=== PATIENT | male | born 1995 | race Caucasian/White ===

== ENCOUNTER 2017-03-02 06:01 | Emergency (ER) | payer OTHER ==
[~2017-03-02] VITALS: Ht 180.3 cm; Wt 88.3 kg
--- NOTE | 2017-03-02 06:30 | PHYS DOC ---
Past History Past Medical History: No Pertinent History, Seizure Past Surgical History: No Surgical History, Other Alcohol Use: Rarely Drug Use: None Adult General Chief Complaint Chief Complaint: MULTIPLE COMPLAINTS HPI HPI 21-year-old gentleman otherwise healthy presents the emergency department today after feeling bad for the last 7 days. He reports recently being on hiking trips with a friend who is currently joining the [employer]. They would hike for approximately 8 hours. He reports during these headaches he has had exposure to ticks and has pulled a few ticks off of him but does not remember what kind. He also 5 or 6 days ago reports that his pet rat bit him. He describes myalgias fever and malaise. Onset 5 days. Location generalized. Duration intermittent. No alleviating or exacerbating factors. He also reports injuring his left ankle while hiking. He has mild left ankle pain from this. Review of systems is negative for chest pain shortness of breath abdominal pain nausea vomiting. He denies neck stiffness or confusion. He denies numbness tingling or weakness All other review of systems is negative unless otherwise noted in history of present illness. Review of Systems Review of Systems SEE ABOVE. Allergies Allergies Allergies Coded Allergies Type Severity Reaction Last Updated Verified No Known Allergies Allergy Unknown 06/10/14 No Physical Exam Physical Exam Constitutional: Well developed, well nourished, no acute distress, non-toxic appearance. HENT: Normocephalic, atraumatic, bilateral external ears normal, oropharynx moist, no oral exudates, nose normal. [] Eyes: PERRLA, EOMI, conjunctiva normal, no discharge. Neck: Normal range of motion, no tenderness, supple, no stridor. [Negative Kernig sign, negative Brudzinski's sign. Cardiovascular:Heart rate regular rhythm, no murmur [] Lungs & Thorax: Bilateral breath sounds clear to auscultation [] Abdomen: Bowel sounds normal, soft, no tenderness, no masses, no pulsatile masses. Skin: Warm, dry, no erythema, no rash. Back: No tenderness, no CVA tenderness. [] Extremities: No tenderness, no cyanosis, no clubbing, ROM intact, no edema. [] Patient has small lesion on his third right finger that he reports as the rat bite. It is not erythematous warm swollen. It is not draining fluid. It is healing well. Neurologic: Alert and oriented X 3, normal motor function, normal sensory function, no focal deficits noted. Psychologic: Affect normal, judgement normal, mood normal. [] EKG EKG [] Radiology/Procedures Radiology/Procedures [] Course & Med Decision Making Course & Med Decision Making Pertinent Labs and Imaging studies reviewed. (See chart for details) [] 21-year-old male presenting with generalized myalgias fatigue and fevers after exposure to tick bite and rat bite. Differential diagnosis included tick borne febrile illnesses such as ehrlichiosis, [place] spotted fever, Lyme's disease. The patient denied any of the classic rashes that are associated with some of these conditions. Other differential considered rat bite fever. We will initiate doxycycline therapy which should cover these illnesses. X-ray obtained. The patient was then discharged home in stable condition to follow up with their primary care physician over the next 2-3 days. They were to return if their symptoms worsened or if they were concerned for any reason. Face-to- face discharge instructions and return precautions were given. Patient's questions were answered to their satisfaction. Patient is comfortable plan. Dragon Disclaimer Dragon Disclaimer This chart was dictated in whole or in part using Voice Recognition software in a busy, high-work load, and often noisy Emergency Department environment. It may contain unintended and wholly unrecognized errors or omissions. Departure Departure: Impression: Primary Impression: Fever Additional Impressions: Malaise Rat bite Tick bite Disposition: 01 HOME, SELF-CARE Condition: STABLE Referrals: NON,STAFF (PCP) SHELL ALARCON MD Patient Instructions: Fatigue, Fever, Rabies Vaccine suspension for injection Additional Instructions: Thank you for allowing us to participate in your care today. Followup with your primary care physician in 3 days if your symptoms do not improve. If you do not have a primary care provider you can ask for a list of our primary care providers. Return to the emergency department you have any new or concerning findings. This should be evaluated by the primary care physician and any necessary consulting services for continued management within a few days after discharge. Return to emergency room if you have any new or concerning symptoms including but not limited to fever, chills, nausea, vomiting, intractable pain, any new rashes, chest pain, shortness of air, uncontrolled bleeding, difficulty breathing, and/or vision loss. Scripts Doxycycline Monohydrate (DOXYCYCLINE MONOHYDRATE) 100 Mg Capsule 1 CAP PO BID, #28 CAP Prov: FRANCINE BROWNING MD 03/02/17 Problem Qualifiers FRANCINE BROWNING MD March 02, 2017 06:30
[2017-03-02] MEDS ORDERED: DOXY100C14 PO (06:36)
[2017-03-02] MEDS ORDERED: RABIES VIRUS VACC PF 2.5 UNIT / 1 ML VIAL. VAX IM ONE (07:00)
[2017-03-02] MEDS ORDERED: RABIES IMMUNE GLOBULIN PF 300 UNIT/2 ML VIAL. VAX IM ONE (07:00)
[2017-03-02] MEDS ORDERED: IBUPROFEN 400 MG TABLET. PO ONE (07:00)
[2017-03-02] MEDS ORDERED: RABIES IMMUNE GLOBULIN PF 150 UNIT/ML 10ML VIAL. VAX IM ONE (07:00)
[2017-03-02 07:55] VITALS: BP 116/60
--- NOTE | 2017-03-02 08:25 | RAD ---
Left ankle radiographs History: Left ankle pain after injury. Comparison: None. Findings: AP, lateral, and oblique views of the left ankle. No acute fracture or dislocation is identified. No focal soft tissue swelling is seen. Impression: No acute osseous traumatic injury identified.
== END 2017-03-02 07:59 | disposition home or self-care (01) ==
LOC: ER 06:01
DX: S61.252A Open bite of right middle finger without damage to nail, initial encounter (principal); T14.8 Other injury of unspecified body region; R50.9 Fever, unspecified; R53.81 Other malaise; W53.11XA Bitten by rat, initial encounter; W57.XXXA Bitten or stung by nonvenomous insect and other nonvenomous arthropods, initial encounter; Y93.89 Activity, other specified; Y99.8 Other external cause status; Y92.89 Other specified places as the place of occurrence of the external cause
CPT/HCPCS: 73610; 90376; 90471; 90675; 96372; 99283-25; 99284-25

== ENCOUNTER 2019-09-25 08:46 | Emergency (ER) | payer SELFPAY ==
[~2019-09-25] VITALS: Ht 179.1 cm; Wt 94.2 kg
[~2019-09-25 08:46] MED LIST: DOXY100C14 PO
--- NOTE | 2019-09-25 09:13 | PHYS DOC ---
Adult General Chief Complaint Chief Complaint Fever HPI HPI 24 years old male presented to the emergency department with fever sore throat and cough body aches or 3 days symptoms are worse today , shortness breath no vomiting no diarrhea no urgency no frequency no hematuria Review of Systems Review of Systems Constitutional: + fever or chills [] Eyes: Denies change in visual acuity, redness, or eye pain [] HENT: Denies nasal congestion or sore throat [] Respiratory: Denies shortness of breath [] Cardiovascular: No additional information not addressed in HPI [] GI: Denies abdominal pain, nausea, vomiting, bloody stools or diarrhea [] : Denies dysuria or hematuria [] Musculoskeletal: Denies back pain or joint pain [] Integument: Denies rash or skin lesions [] Neurologic: Denies headache, focal weakness or sensory changes [] Endocrine: Denies polyuria or polydipsia [] All other systems were reviewed and found to be within normal limits, except as documented in this note. Current Medications Current Medications Current Medications Medications (Trade) Dose Ordered Sig/Lesly Start Time Stop Time Status Last Admin Dose Admin Ketorolac Tromethamine (Toradol Im) 60 mg 1X ONCE 09/25/19 09:15 09/25/19 09:16 DC Prednisone (Prednisone) 60 mg 1X ONCE 09/25/19 09:15 09/25/19 09:16 DC Allergies Allergies Allergies Coded Allergies Type Severity Reaction Last Updated Verified No Known Allergies Allergy Unknown 06/10/14 No Physical Exam Physical Exam Constitutional: Well developed, well nourished, no acute distress, non-toxic appearance. [] HENT: Normocephalic, atraumatic, bilateral external ears normal, oropharynx moist, pharyngeal erythema, nose normal. [] Eyes: PERRLA, EOMI, conjunctiva normal, no discharge. [] Neck: Normal range of motion, no tenderness, supple, no stridor. [] Cardiovascular:Heart rate regular rhythm, no murmur [] Lungs & Thorax: Bilateral breath sounds clear to auscultation [] Abdomen: Bowel sounds normal, soft, no tenderness, no masses, no pulsatile masses. [] Skin: Warm, dry, no erythema, no rash. [] Back: No tenderness, no CVA tenderness. [] Extremities: No tenderness, no cyanosis, no clubbing, ROM intact, no edema. [] Neurologic: Alert and oriented X 3, normal motor function, normal sensory function, no focal deficits noted. [] Psychologic: Affect normal, judgement normal, mood normal. [] EKG EKG [] Radiology/Procedures Radiology/Procedures [] Course & Med Decision Making Course & Med Decision Making Pertinent Labs and Imaging studies reviewed. (See chart for details) [] Final Impression Final Impression [] Problems: (1) Strep pharyngitis Dragon Disclaimer Dragon Disclaimer This electronic medical record was generated, in whole or in part, using a voice recognition dictation system. GEOVANI PARRISH MD Sep 25, 2019 09:13
[2019-09-25] MEDS ORDERED: KETOROLAC 60 MG/2 ML VIAL. IM ONE (09:15)
[2019-09-25] MEDS ORDERED: predniSONE 20 MG TABLET PO ONE (09:15)
[2019-09-25] MEDS ORDERED: AMOX500C PO (09:40)
[2019-09-25 09:53] LABS: INFLUENZA A PATIENT NEGATIVE (NEGATIVE); INFLUENZA B PATIENT NEGATIVE (NEGATIVE)
[2019-09-25 10:00] VITALS: BP 114/75
== END 2019-09-25 10:00 | disposition home or self-care (01) ==
LOC: ER 08:46
DX: J02.0 Streptococcal pharyngitis (principal); B95.0 Streptococcus, group A, as the cause of diseases classified elsewhere
CPT/HCPCS: 87804; 87880; 96372; 99284; J1885; J7512

== ENCOUNTER 2020-04-06 01:23 | Emergency (ER) | payer BC ==
[~2020-04-06] VITALS: Ht 180.3 cm; Wt 92.9 kg
[~2020-04-06 01:23] MED LIST changes: +AMOX500C PO
--- NOTE | 2020-04-06 01:34 | PHYS DOC ---
Past History Past Medical History: Seizure, Other Additional Past Medical Histor: craniosynostosis Past Surgical History: Other Additional Past Surgical Histo: multiple skull surgeries as child Alcohol Use: Occasionally Drug Use: None General Adult EDM: Chief Complaint: LACERATION/AVULSION HPI: HPI: "..I was huang running across grass.. and I fell scrape up my Lt. leg ... and ripped off the nail on this Rt. little .. finger..." " I was going to take care of it at home.. but my said .. I needed to come... in.." Patient is a 24 year old male who presents with above hx of fall and laceration avulsion of right distal fifth phalange nail and tip of finger. Patient does have range of motion of right fifth finger. Has ground in mud and dirt to fifth finger avulsion laceration and to right franklin abrasion lacerations. Patient laceration abrasions on left anterior franklin and small abrasions to right anterior franklin are superficial and multiple.. Patient is right-hand dominant. Patient does not remember his last tetanus vaccination. Patient has been drinking some alcohol tonight. No history of recent travel outside the [place] area. No history of immunosuppression. No recent exposure to ill individuals or animals. Patient normally follows with Dr. Alarcon. Review of Systems: Review of Systems: Constitutional: Denies fever or chills Eyes: Denies change in visual acuity HENT: Denies nasal congestion or sore throat Respiratory: Denies cough or shortness of breath Cardiovascular: Denies chest pain or edema GI: Denies abdominal pain, nausea, vomiting, bloody stools or diarrhea : Denies dysuria Musculoskeletal: Denies back pain or joint pain Integument: Denies rash Neurologic: Denies headache, focal weakness or sensory changes Endocrine: Denies polyuria or polydipsia Lymphatic: Denies swollen glands Psychiatric: Denies depression or anxiety Heart Score: Risk Factors: Risk Factors: DM, Current or recent (<one month) smoker, HTN, HLP, family history of CAD, obesity. Risk Scores: Score 0 - 3: 2.5% MACE over next 6 weeks - Discharge Home Score 4 - 6: 20.3% MACE over next 6 weeks - Admit for Clinical Observation Score 7 - 10: 72.7% MACE over next 6 weeks - Early Invasive Strategies Family History: Family History: Noncontributory Current Medications: Current Meds: See nursing for home meds Allergies: Allergies: Allergies Coded Allergies Type Severity Reaction Last Updated Verified No Known Allergies Allergy Unknown 09/25/19 No Physical Exam: PE: Constitutional: Well developed, well nourished, moderate acute distress, intoxicated in appearance. [] HENT: Normocephalic, atraumatic, bilateral external ears normal, oropharynx moist, no oral exudates, nose normal. [] Eyes: PERRLA, EOMI, conjunctiva normal, no discharge. [] Neck: Normal range of motion, no tenderness, supple, no stridor. [] Cardiovascular: Tachycardia heart rate regular rhythm, no murmur [] Lungs & Thorax: Bilateral breath sounds equal at apex on auscultation [] Abdomen: Bowel sounds normal, soft, no tenderness, no masses, no pulsatile masses. [] Skin: Warm, dry, no erythema, no rash. [] Multiple small abrasion lacerations to both shins primarily on left franklin. The avulsion laceration of right distal fifth fingertip and fingernail. Back: No tenderness, no CVA tenderness. [] Extremities: No tenderness, no cyanosis, no clubbing, ROM intact, no edema. Contusion to bilateral shins. Neurologic: Alert and oriented X 3, normal motor function, normal sensory function, no focal deficits noted. [] Psychologic: Affect normal, judgement normal, mood normal. [] EKG: EKG: [] Radiology/Procedures: Radiology/Procedures: [][address] [address] IMAGING REPORT Signed PATIENT: NANCY LOWERY ACCOUNT: [id number] : 1995 LOCATION: ER AGE: 24 SEX: M EXAM STATUS: DEP ER ORD. PHYSICIAN: NICHOLE GALLARDO MD REASON: fall PROCEDURE: HAND RIGHT 3V Right hand 3 views. HISTORY: Fall 3 views were taken of the right hand. There is soft tissue swelling of the fifth finger. There is not evidence of an acute fracture or osseous abnormality. IMPRESSION: 1. Soft tissue swelling with soft tissue injury right fifth finger. 2. No acute fracture. Electronically signed by: Nando Cai MD (04/06/2020 3:40 AM) [id number] DICTATED AND SIGNED BY: NANDO CAI MD DATE: 04/06/20339 CC: SHELL ALARCON MD; NICHOLE GALLARDO MD ~ Course & Med Decision Making: Course & Med Decision Making Pertinent Labs and Imaging studies reviewed. (See chart for details) Procedure note-wound care: Patient received a digital block with 2% lidocaine as well as local injection of distal right fifth finger tip. The avulsion laceration of right fifth finger required sharp scissor removal of avascular skin and ground in dirt. Wound scrubbed with normal saline and Betadine. Reirrigated wound with normal saline. Bactracin applied with band aid and bulk dressing.. 5th Finger joaquin tapped to 4th finger. Patient to leave dressing in place for the next 3 days. Patient must keep wound clean and dry. If dressing becomes wet must change dressing immediately. Once initial dressing removed will need to apply Polysporin 4 times a day to wound. Patient to monitor closely for increase infection of wound. Patient to take Keflex 500 mg 3 times a day. Patient did receive a IM injection of Rocephin 1 g tonight. Warned patient wound high risk for infection due to the ground in dirt. Patient advised nail may not return to a normal position and may be in excess of a year before going out if the cuticle bed still intact. Nursing scrubbed abrasions lacerations on legs with a scrub brush. These injuries were not amenable to suture. Patient advised to expect continued bleeding and oozing tonight. Patient to keep right hand elevated. Patient take Tylenol and ibuprofen for pain. Patient return if any concerns. Impression: 1. Rt.5 th finger distal a avulsion laceration of fingertip and nail. 2. Multiple superficial abrasions and lacerations to right and left franklin [] Dragon Disclaimer: Dragon Disclaimer: This electronic medical record was generated, in whole or in part, using a voice recognition dictation system. Departure Departure: Disposition: 01 HOME/RESIDENCE PRIOR TO ADM Condition: STABLE Referrals: SHELL ALARCON MD (PCP) Scripts Cephalexin (KEFLEX) 500 Mg Capsule 500 MG PO TID for dirty wound for 7 Days, BOT Prov: NICHOLE GALLARDO MD 04/06/20 Justification of Admission: Justification of Admission: Justification of Admission Dx: N/A Dr[place]ra Disclaimer This chart was dictated in whole or in part using Voice Recognition software in a busy, high-work load, and often noisy Emergency Department environment. It may contain unintended and wholly unrecognized errors or omissions. Dragon Disclaimer This chart was dictated in whole or in part using Voice Recognition software in a busy, high-work load, and often noisy Emergency Department environment. It may contain unintended and wholly unrecognized errors or omissions. NICHOLE GALLARDO MD Apr 06, 2020 01:34
[2020-04-06 01:41] VITALS: BP 118/88
[2020-04-06] MEDS: ACETAMINOPHEN 500 MG TABLET PO ONE ×2 (01:57→02:00)
[2020-04-06] MEDS ORDERED: DIPH,PERTUSS(ACELL),TET VAC/PF 0.5 ML SYRINGE. VAX IM ONE (02:00)
[2020-04-06] MEDS ORDERED: LIDOCAINE 2% 20 ML VIAL. IJ ONE (02:00)
[2020-04-06] MEDS ORDERED: BACITRACIN ZINC TOPICAL OINT PACKET. TP ONE (02:00)
[2020-04-06] MEDS ORDERED: CEPH-264 PO (02:13)
[2020-04-06] MEDS ORDERED: cefTRIAXone IM 1 GM VIAL IM ONE (02:30)
--- NOTE | 2020-04-06 03:43 | RAD ---
Right hand 3 views. HISTORY: Fall 3 views were taken of the right hand. There is soft tissue swelling of the fifth finger. There is not evidence of an acute fracture or osseous abnormality. IMPRESSION: 1. Soft tissue swelling with soft tissue injury right fifth finger. 2. No acute fracture. Electronically signed by: Nando Cai MD (04/06/2020 3:40 AM) [id number]
== END 2020-04-06 02:55 | disposition home or self-care (01) ==
LOC: ER 01:23
DX: S61.316A Laceration without foreign body of right little finger with damage to nail, initial encounter (principal); W18.39XA Other fall on same level, initial encounter; Y93.02 Activity, running; Y92.89 Other specified places as the place of occurrence of the external cause; Y99.8 Other external cause status
CPT/HCPCS: 64450; 73130; 90471; 90715; 96372; 99284; J0696; J2001

== ENCOUNTER 2021-07-19 13:25 | Emergency (ER) | payer SELFPAY ==
[~2021-07-19] VITALS: Ht 180.3 cm; Wt 92.9 kg
[~2021-07-19 13:25] MED LIST changes: +CEPH-264 PO; +DOXY-181 PO; -DOXY100C14 PO
[2021-07-19 13:33] VITALS: BP 137/82
--- NOTE | 2021-07-19 13:51 | PHYS DOC ---
Past History Past Medical History: No Pertinent History, Seizure, Other Additional Past Medical Histor: craniosynostosis (ROYCE BRUCE APRN) Past Surgical History: Other Additional Past Surgical Histo: multiple skull surgeries as child (ROYCE BRUCE APRN) Alcohol Use: Occasionally Drug Use: None (ROYCE BRUCE APRN) General Adult EDM: Chief Complaint: EARACHE/EAR PAIN HPI: HPI: Patient is a 26-year-old male who presents to the emergency department for left ear pain. Patient reports that he tried to remove his earwax with a curette and started having pain after. He rates his pain 6 out of 10. He took ibuprofen prior to arrival. Patient denies any fevers, cough, sore throat, nasal congestion or drainage. (ROYCE BRUCE APRN) Review of Systems: Review of Systems: 14 body systems of the review of systems have been reviewed. See HPI for pertinent positive and negative responses, otherwise all other systems are negative, nonpertinent or noncontributory (ROYCE BRUCE APRN) Allergies: Allergies: Allergies Coded Allergies Type Severity Reaction Last Updated Verified No Known Allergies Allergy Unknown 09/25/19 No (ROYCE BRUCE APRN) Physical Exam: PE: Constitutional: Well developed, well nourished, no acute distress, non-toxic appearance. [] HENT: Normocephalic, atraumatic, left ear canal noted with excessive cerumen without redness, oropharynx moist, no oral exudates, nose normal. [] Eyes: PERRL, EOMI, conjunctiva normal, no discharge. [] Neck: Normal range of motion, no stridor Cardiovascular: Normal peripheral perfusion Lungs & Thorax: Normal work of breathing, no tachypnea Abdomen: Soft and flat Skin: Warm, dry, no erythema, no rash. [] Back: Normal range of motion Extremities: No tenderness, no cyanosis, no clubbing, ROM intact, no edema. [] Neurologic: Alert and oriented X 3, normal motor function, normal sensory function, no focal deficits noted. [] Psychologic: Affect normal, judgement normal, mood normal. [] (ROYCE BRUCE APRN) Current Patient Data: Vital Signs: Vital Signs Date Time Temp Pulse Resp B/P (MAP) Pulse Ox O2 Delivery O2 Flow Rate FiO2 07/19/21 13:33 98.3 67 16 137/82 (100) 98 Room Air (ROYCE BRUCE APRN) EKG: EKG: [] (ROYCE BRUCE APRN) Radiology/Procedures: Radiology/Procedures: [] (ROYCE BRUCE APRN) Heart Score: C/O Chest Pain: N/A Risk Factors: Risk Factors: DM, Current or recent (<one month) smoker, HTN, HLP, family history of CAD, obesity. Risk Scores: Score 0 - 3: 2.5% MACE over next 6 weeks - Discharge Home Score 4 - 6: 20.3% MACE over next 6 weeks - Admit for Clinical Observation Score 7 - 10: 72.7% MACE over next 6 weeks - Early Invasive Strategies (ROYCE BRUCE APRN) Course & Med Decision Making: Course & Med Decision Making Pertinent Labs and Imaging studies reviewed. (See chart for details) [] Patient presents with left ear pain after removing earwax with a curette. Patient was noted to have excessive cerumen in his left ear canal. This was washed out in the ER and removed, tympanic membranes visualized and is without redness. Patient advised to use Debrox at home and continue to take Tylenol and ibuprofen for pain. I discussed with patient all findings and diagnostic testing as well as the need to follow-up with PCP for further evaluation and treatment or return to the ER if any new or worsening symptoms. Strict return precautions were also discussed at length. Patient voiced understanding and agreement with the plan. Patient is hemodynamically stable at the time of disposition.. (ROYCE BRUCE APRN) Course & Med Decision Making I was the Attending physician on the above date of service of this patient. This patient was evaluated, examined, treated, and dispositioned from the emergency department by the mid-level practitioner. Although I was working at the time , no assistance was requested. Electronically signed, Melina Ding DO (MELINA DING DO) Bill Disclaimer: Bill Disclaimer: This electronic medical record was generated, in whole or in part, using a voice recognition dictation system. (ROYCE BRUCE APRN) Departure Departure: Impression: Primary Impression: Cerumen impaction Qualified Codes: H61.22 - Impacted cerumen, left ear Disposition: HOME / SELF CARE / HOMELESS Condition: GOOD Referrals: SHELL ALARCON MD (PCP) Patient Instructions: Cerumen Impaction Additional Instructions: You were seen in the emergency department for left ear pain. You were noted to have excessive cerumen, this was removed with an ear wash. There was no redness to indicate ear infection. You can use Debrox to soften your earwax to let it drain out normally, avoid putting any objects into your ear canal. You can take Tylenol or ibuprofen for pain. Follow-up with your primary care provider as needed. Return to the emergency department if you have any new or worsening concerns. EMERGENCY DEPARTMENT GENERAL DISCHARGE INSTRUCTIONS Thank you for coming to [facility] (ED) today and trusting us with you care. We trust that you had a positivie experience in our Emergency Department. If you wish to speak to the department management, you may call the director at [phone]. YOUR FOLLOW UP INSTRUCTIONS ARE FOLLOWS: 1. Do you have a private Doctor? If you do not have a private doctor, please ask for a resource list of physicians or clinics that may be able to assist you with follow up care. 2. The Emergency Physician has interpreted your x-rays. The X-Ray specialist will also review them. If there is a change in the findings, you will be notified in 48 hours when at all possible. 3. A lab test or culture has been done, your results will be reviewed and you will be notified if you need a change in treatment. ADDITIONAL INSTRUCTIONS AND INFORMATION: 1. Your care today has been supervised by a physician who is specially trained in emergency care. Many problems require more than one evaluation for a complete diagnosis and treatment. We recommend that you schedule your follow up appointment as recommended to ensure complete treatment of you illness or injury. If you are unable to obtain follow up care and continue to have a problem, or if your condition worsens, we recommend that you return to the ED. 2. We are not able to safely determine your condition over the phone nor are we able to give sound medical advice over the phone. For these safety reasons, if you call for medical advice we will ask you to come to the ED for further evaluation. 3. If you have any questions regarding these discharge instructions please call the ED at [phone]. SAFETY INFORMATION: In the interest of safety, wellness, and injury prevention; we encourage you to wear your sealbelt, if you smoke; quite smoking, and we encourage family to use a protec tive helmet for bicycling and other sporting events that present an increased risk for head injury. IF YOUR SYMPTOMS WORSEN OR NEW SYMPTOMS DEVELOP, OR YOU HAVE CONCERNS ABOUT YOUR CONDITION; OR IF YOUR CONDITION WORSENS WHILE YOU ARE WAITING FOR YOUR FOLLOW UP APPOINTMENT; EITHER CONTACT YOUR PRIMARY CARE DOCTOR, THE PHYSICIAN WHOSE NAME AND NUMBER YOU WERE GIVEN, OR RETURN TO THE ED IMMEDIATELY. ROYCE BRUCE APRN Jul 19, 2021 13:51 MELINA DING DO Jul 20, 2021 13:14
== END 2021-07-19 15:46 | disposition home or self-care (01) ==
LOC: ER 13:25
DX: H61.22 Impacted cerumen, left ear (principal)
CPT/HCPCS: 69209; 99282

== ENCOUNTER 2021-07-25 22:14 | Emergency (ER) | payer SELFPAY ==
[~2021-07-25] VITALS: Ht 180.3 cm; Wt 100.1 kg
--- NOTE | 2021-07-25 22:22 | PHYS DOC ---
Past History Past Medical History: No Pertinent History, Seizure, Other Additional Past Medical Histor: craniosynostosis Past Surgical History: Other Additional Past Surgical Histo: multiple skull surgeries as child Alcohol Use: Occasionally Drug Use: None General Adult HPI: HPI: "..I ve got a really sore throat...the last two..days.. it really hurting.. " Patient is a 26 year old male who presents with above hx and complaints sore throat. Patient has had previous episodes of strep pharyngitis. Patient denies any recent travel. No specific ill contacts. 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 No history immunosuppression. Patient normally follows with Dr. Mancini Review of Systems: Review of Systems: Constitutional: Denies fever or chills Eyes: Denies change in visual acuity HENT: History of sore throat Respiratory: Denies cough or shortness of breath Cardiovascular: Denies chest pain or edema GI: Denies abdominal pain, nausea, vomiting, bloody stools or diarrhea : Denies dysuria Musculoskeletal: Denies back pain or joint pain Integument: Denies rash Neurologic: Denies headache, focal weakness or sensory changes Endocrine: Denies polyuria or polydipsia Lymphatic: Denies swollen glands Psychiatric: Denies depression or anxiety Family History: Family History: Noncontributory to presentation. Current Medications: Current Meds: See nursing for home meds Allergies: Allergies: Allergies Coded Allergies Type Severity Reaction Last Updated Verified No Known Allergies Allergy Unknown 09/25/19 No Physical Exam: PE: Constitutional: Well developed, well nourished, moderate acute distress, non- toxic appearance. [] HENT: Normocephalic, atraumatic, bilateral external ears normal, oropharynx moist, injected pharynx no oral exudates, nose normal. [] Old surgical scars. Eyes: PERRLA, EOMI, conjunctiva normal, no discharge. [] Neck: Normal range of motion, no tenderness, supple, no stridor. Adenopathy anterior cervical chain bilaterally Cardiovascular:Heart rate regular rhythm, no murmur [] Lungs & Thorax: Bilateral breath sounds equal at apex on auscultation [] Abdomen: Bowel sounds normal, soft, no tenderness, no masses, no pulsatile masses. [] Skin: Warm, dry, no erythema, no rash. [] Back: No tenderness, no CVA tenderness. [] Extremities: No tenderness, no cyanosis, no clubbing, ROM intact, no edema. [] Neurologic: Alert and oriented X 3, normal motor function, normal sensory function, no focal deficits noted. [] Psychologic: Affect anxious, judgement normal, mood normal. [] EKG: EKG: [] Radiology/Procedures: Radiology/Procedures: [] Heart Score: C/O Chest Pain: N/A Risk Factors: Risk Factors: DM, Current or recent (<one month) smoker, HTN, HLP, family history of CAD, obesity. Risk Scores: Score 0 - 3: 2.5% MACE over next 6 weeks - Discharge Home Score 4 - 6: 20.3% MACE over next 6 weeks - Admit for Clinical Observation Score 7 - 10: 72.7% MACE over next 6 weeks - Early Invasive Strategies Course & Med Decision Making: Course & Med Decision Making Pertinent Labs and Imaging studies reviewed. (See chart for details) Gargle with Listerine 4 times a day. And as needed. Take Tylenol and ibuprofen for discomfort. Take Keflex 500 mg 3 times a day. Follow-up primary care. Return if any concerns. Liquid ibuprofen and liquid Benadryl may be helpful for the topical pain. Self isolate. Follow-up Covid testing. Wear a mask that covers nose and mouth at all times. Self isolate. Impression: 1. Strep pharyngitis [] Dragon Disclaimer: Dragnasra Disclaimer: This electronic medical record was generated, in whole or in part, using a voice recognition dictation system. Departure Departure: Referrals: SHELL MANCINI MD (PCP) Scripts Cephalexin (KEFLEX) 500 Mg Capsule 1 CAP PO TID for strept., #30 CAP Prov: NICHOLE GALLARDO MD 07/25/21 Bill Disclaimer This chart was dictated in whole or in part using Voice Recognition software in a busy, high-work load, and often noisy Emergency Department environment. It may contain unintended and wholly unrecognized errors or omissions. NICHOLE GALLARDO MD Jul 25, 2021 22:22
[2021-07-25] MEDS ORDERED: CEPH500C PO (22:52)
[2021-07-25] MEDS ORDERED: HYDROcodon/IBUPROFEN 7.5/200MG 1 TAB TABLET PO ONE (23:00)
[2021-07-25] MEDS ORDERED: CEPHALEXIN 250 MG CAPSULE PO ONE (23:00)
[2021-07-25] MEDS ORDERED: predniSONE 20 MG TABLET PO ONE (23:00)
[2021-07-25 23:34] LABS: INFLUENZA A PATIENT NEGATIVE (NEGATIVE); INFLUENZA B PATIENT NEGATIVE (NEGATIVE)
[2021-07-25 23:40] VITALS: BP 120/81
== END 2021-07-25 23:48 | disposition home or self-care (01) ==
LOC: ER 22:14
DX: J02.8 Acute pharyngitis due to other specified organisms (principal); Z20.822 Contact with and (suspected) exposure to COVID-19
CPT/HCPCS: 87804; 87880; 99284; C9803; J7512; U0003

== ENCOUNTER 2021-10-26 22:21 | Emergency (ER) | payer SELFPAY ==
[~2021-10-26] VITALS: Ht 180.3 cm; Wt 103.0 kg
[~2021-10-26 22:21] MED LIST changes: +CEPH500C PO
--- NOTE | 2021-10-26 22:27 | PHYS DOC ---
Past History Past Medical History: No Pertinent History, Seizure, Other Additional Past Medical Histor: craniosynostosis Past Surgical History: Other Additional Past Surgical Histo: multiple skull surgeries as child(27 reconstructive) Alcohol Use: Occasionally Drug Use: None Adult General Chief Complaint Chief Complaint: SORE THROAT [facility] HPI Patient is a 26-year-old male presenting for sore throat. Patient reports he started developing symptoms 72 hours prior. Reports he was out of town camping with friends, none of which were reportedly sick but started having a sore throat with postnasal drip and a mild productive cough shortly after arriving back home. He states that he is fully vaccinated against COVID-19 but significant other is and he is concerned he might have contracted this and requesting testing. He is also requesting testing for strep throat given that his throat is sore in absence of any fever. He is also concerned he might of contracted rabies as when he was out camping he saw a raccoon, denies any close contact with said animal Review of Systems Review of Systems Fourteen body systems of review of systems have been reviewed. See HPI for pertinent positives and negative responses, other kitchen all other systems are negative, non-pertinent or non-contributory Allergies Allergies Allergies Coded Allergies Type Severity Reaction Last Updated Verified No Known Allergies Allergy Unknown 09/25/19 No Physical Exam Physical Exam General: Appears well, non toxic, and comfortable Skin: Warm, dry. Normal for ethnicity. HEENT: Atraumatic. PERRLA. Rhinorrhea and congestion. Nasal turbinates boggy b/l. Moist mucous membranes with postnasal drip present. Uvula midline. Maintaining secretions. No phonation changes. No cervical lymphadenopathy Neck: Trachea midline. Normal ROM. No stridor. Respiratory: Normal WOB. CTAB w/o w/r/r. No tachypnea. Cardiovascular: Regular rate and rhythm. Normal peripheral perfusion. Abdomen: Soft. Non tender. No distension. Back: Normal ROM. Musculoskeletal: No swelling or deformity. Neuro: Alert and oriented x 4. MAEE. Lymph: No cervical LAD. Psych: Odd affect and mood Current Patient Data Vital Signs Vital Signs Date Time Temp Pulse Resp B/P (MAP) Pulse Ox O2 Delivery O2 Flow Rate FiO2 10/26/21 22:49 72 24 148/103 (118) 98 Room Air Vital Signs Date Time Temp Pulse Resp B/P (MAP) Pulse Ox O2 Delivery O2 Flow Rate FiO2 10/26/21 22:49 72 24 148/103 (118) 98 Room Air EKG EKG [] Radiology/Procedures Radiology/Procedures [] Heart Score C/O Chest Pain: No Risk Factors: Risk Factors: DM, Current or recent (<one month) smoker, HTN, HLP, family his tory of CAD, obesity. Risk Scores: Risk Factors: DM, Current or recent (<one month) smoker, HTN, HLP, family history of CAD, obesity. Course & Med Decision Making Course & Med Decision Making ABCs unremarkable HPI and physical exam nonconcerning for any emergent or surgical issues in a nontoxic individual Patient tested for rapid flu and COVID which were negative in a vaccinated individual Patient taking unknown and hold antibiotics for sore throat, advised him to discontinue this. Discussed no indication for strep throat testing given obvious postnasal drip and absence of fever, oropharyngeal exudates or cervical lymphadenopathy. Centor 0 Patient concern for rabies despite no close contact and/or mucus or blood exposure to raccoon. Little indication for further diagnostic work-up and/or intervention Patient ultimately fit for discharge home with continued supportive care practices and close outpatient follow-up [facility] Disclaimer Dragon Disclaimer This electronic medical record was generated, in whole or in part, using a voice recognition dictation system. Departure Departure: Impression: Primary Impression: Sore throat Additional Impressions: Postnasal drip Viral syndrome Disposition: HOME / SELF CARE / HOMELESS Condition: STABLE Referrals: SHELL ALARCON MD (PCP) Problem Qualifiers MELINA DING DO Oct 26, 2021 22:27
[2021-10-26 22:49] VITALS: BP 148/103
[2021-10-26 23:20] LABS: INFLUENZA A PATIENT NEGATIVE (NEGATIVE); INFLUENZA B PATIENT NEGATIVE (NEGATIVE)
== END 2021-10-27 00:01 | disposition home or self-care (01) ==
LOC: ER 22:21
DX: B34.9 Viral infection, unspecified (principal); R09.82 Postnasal drip; J02.9 Acute pharyngitis, unspecified; Z20.822 Contact with and (suspected) exposure to COVID-19
CPT/HCPCS: 87428; 99283